=== PATIENT | male | born 1990 | race Two or more races ===

== ENCOUNTER 2021-03-13 05:04 | Emergency (ER) | payer SELFPAY ==
[~2021-03-13] VITALS: Ht 172.7 cm; Wt 65.9 kg
--- NOTE | 2021-03-13 05:21 | PHYS DOC ---
Past Medical History Past Medical History: No Pertinent History (EMIL SUAREZ DO) Past Surgical History: No Surgical History (EMIL SUAREZ DO) Alcohol Use: None (EMIL SUAREZ DO) General Adult EDM: Chief Complaint: ABDOMINAL PAIN HPI: HPI: Patient is a 30 year old male who present to ER due to right side fl ank pain that radiates to right lower abdominal area started at 2 AM this morning. Patient says he vomited one time with trace of blood. Patient also complained of pain with urination. Patient said he is not take any medication currently, he does not drink alcohol, does not have any history of kidney stone. Patient denies any blood in his urine. Patient is a Japanese-speaking, history was obtained using [employer]. (EMIL SUAREZ DO) HPI: Patient is a 30-year-old male who arrives at the emergency department complaining of abdominal pain. Patient reports during the past 3 days he is experienced intermittent abdominal pain in the right side of his abdomen with radiation downward. Patient also states he has had multiple episodes of vomiting and most recently experienced some very scant bleeding associated with his vomiting. Patient describes difficulty swallowing as well during this time. Despite this, he denies any history of fever or diarrhea. Additionally he denies any chest pain or shortness of air he states his throat is not sore. He further denies any known alcohol use or sick contacts. He is awake, alert and nontoxic-appearing. (OMID HOFFMAN DO) Review of Systems: Review of Systems: Constitutional: Denies fever or chills. [] Eyes: Denies change in visual acuity. [] HENT: Denies nasal congestion or sore throat. [] Respiratory: Denies cough or shortness of breath. [] Cardiovascular: Denies chest pain or edema. [] GI: Positive for right abdominal pain with nausea vomiting, no diarrhea. : Positive for dysuria. [] Musculoskeletal: Denies back pain or joint pain. [] Integument: Denies rash. [] Neurologic: Denies headache, focal weakness or sensory changes. [] Endocrine: Denies polyuria or polydipsia. [] Lymphatic: Denies swollen glands. [] Psychiatric: Denies depression or anxiety. [] (EMIL SUAREZ DO) Review of Systems: ENT: The patient reports to difficulty swallowing GI: The patient reports abdominal pain with vomiting All other systems have been reviewed and are within normal limits. (OMID HOFFMAN DO) Heart Score: C/O Chest Pain: N/A Risk Factors: Risk Factors: DM, Current or recent (<one month) smoker, HTN, HLP, family history of CAD, obesity. Risk Scores: Score 0 - 3: 2.5% MACE over next 6 weeks - Discharge Home Score 4 - 6: 20.3% MACE over next 6 weeks - Admit for Clinical Observation Score 7 - 10: 72.7% MACE over next 6 weeks - Early Invasive Strategies (EMIL SUAREZ DO) C/O Chest Pain: No (OMID HOFFMAN DO) Family History: Family History: Noncontributory (OMID HOFFMAN DO) Physical Exam: PE: Constitutional: Well developed, well nourished, no acute distress, non-toxic appearance. [] HENT: Normocephalic, atraumatic, bilateral external ears normal, oropharynx moist, no oral exudates, nose normal. [] Eyes: PERRLA, EOMI, conjunctiva normal, no discharge. [] Neck: Normal range of motion, no tenderness, supple, no stridor. [] Cardiovascular:Heart rate regular rhythm, no murmur [] Lungs & Thorax: Bilateral breath sounds clear to auscultation [] Abdomen: Bowel sounds normal, soft, There is tenderness to palpation in RUQ, RIGHT FLANK AND RLQ, no masses, no pulsatile masses. [] Skin: Warm, dry, no erythema, no rash. [] Back: No tenderness, Positive for right CVA tenderness. [] Extremities: No tenderness, no cyanosis, no clubbing, ROM intact, no edema. [] Neurologic: Alert and oriented X 3, normal motor function, normal sensory function, no focal deficits noted. [] Psychologic: Affect normal, judgement normal, mood normal. [] (EMIL SUAREZ DO) PE: General: Uncomfortable appearing otherwise well-developed. Head: Normocephalic, atraumatic ENT: Normal mucous membranes, no sinus tenderness pharynx is nonerythematous without exudates or swelling Neck: Supple, nontender Cardiovascular: Regular rate, rhythm without murmur or rub. Lungs: Clear to auscultation bilaterally without evidence of wheezes rhonchi or rales Abdomen: Tenderness to palpation of the right mid abdomen as well as right lower quadrant. There is no rebound, guarding or rigidity present. The abdomen is soft and bowel sounds are heard throughout. Skin: No rash : Deferred Neurological: Cranial nerves II through XII are intact. Patient moves all extremities without difficulty. There are no sensory or motor deficits. (OMID HOFFMAN DO) Current Patient Data: Labs: Laboratory Tests Test 03/13/21 05:27 White Blood Count 5.1 x10^3/uL Red Blood Count 5.61 x10^6/uL Hemoglobin 15.8 g/dL Hematocrit 45.6 % Mean Corpuscular Volume 81 fL Mean Corpuscular Hemoglobin 28 pg Mean Corpuscular Hemoglobin Concent 35 g/dL Red Cell Distribution Width 12.7 % Platelet Count 258 x10^3/uL Neutrophils (%) (Auto) 61 % Lymphocytes (%) (Auto) 28 % Monocytes (%) (Auto) 8 % Eosinophils (%) (Auto) 2 % Basophils (%) (Auto) 1 % Neutrophils # (Auto) 3.1 x10^3/uL Lymphocytes # (Auto) 1.4 x10^3/uL Monocytes # (Auto) 0.4 x10^3/uL Eosinophils # (Auto) 0.1 x10^3/uL Basophils # (Auto) 0.0 x10^3/uL Sodium Level 136 mmol/L Potassium Level 4.0 mmol/L Chloride Level 101 mmol/L Carbon Dioxide Level 27 mmol/L Anion Gap 8 Blood Urea Nitrogen 10 mg/dL Creatinine 0.8 mg/dL Estimated GFR (Cockcroft-Gault) 112.0 BUN/Creatinine Ratio 13 Glucose Level 105 mg/dL Calcium Level 9.3 mg/dL Total Bilirubin 0.3 mg/dL Aspartate Amino Transf (AST/SGOT) 50 U/L Alanine Aminotransferase (ALT/SGPT) 61 U/L Alkaline Phosphatase 78 U/L Total Protein 8.5 g/dL Albumin 4.4 g/dL Albumin/Globulin Ratio 1.1 Lipase 97 U/L Current Medications Medications (Trade) Dose Ordered Sig/Kalpana Route PRN Reason Start Time Stop Time Status Last Admin Dose Admin Sodium Chloride 1,000 ml @ 1,000 mls/hr 1X ONCE IV 03/13/21 05:30 03/13/21 06:29 03/13/21 05:35 Ondansetron HCl (Zofran) 4 mg 1X ONCE IVP 03/13/21 05:30 03/13/21 05:31 DC 03/13/21 05:36 Morphine Sulfate (Morphine Sulfate) 4 mg 1X ONCE IVP 03/13/21 05:30 03/13/21 05:31 DC 03/13/21 05:36 Famotidine (Pepcid Vial) 20 mg 1X ONCE IVP 03/13/21 05:30 03/13/21 05:31 DC 03/13/21 05:36 Iohexol (Omnipaque 300 Mg/ml) 75 ml 1X ONCE IV 03/13/21 06:00 03/13/21 06:01 DC 03/13/21 06:01 Info (CONTRAST GIVEN -- Rx MONITORING) 1 each PRN DAILY PRN MC SEE COMMENTS 03/13/21 06:00 03/15/21 05:59 (EMIL SUAREZ DO) EKG: EKG: [] (EMIL SUAREZ DO) Radiology/Procedures: Radiology/Procedures: [] (EMIL SUAREZ DO) Impression: [facility] [address] [place] [address] IMAGING REPORT Signed PATIENT: YARELIS SRIVASTAVA DACCOUNT: [id number] : 1990 LOCATION: ER AGE: 30 SEX: M EXAM STATUS: PRE ER ORD. PHYSICIAN: EMIL SUAREZ DO REASON: right side abdominal pain PROCEDURE: CT ABD PELV W/ IV CONTRST ONLY PQRS Compliance Statement: One or more of the following individualized dose reduction techniques were utilized for this examination: 1. Automated exposure control 2. Adjustment of the mA and/or kV according to patient size 3. Use of iterative reconstruction technique CT abdomen/pelvis with contrast 03/13/2021 5:50 AM INDICATION: Right-sided abdominal pain COMPARISON: None available TECHNIQUE: Multiple axial CT images of the abdomen and pelvis were obtained after the intravenous administration of nonionic contrast. Coronal and sagittal reformats are provided. FINDINGS: There is subsegmental atelectasis or scarring within the posterior basal segment right lower lobe and medial segment right middle lobe. Heart size is within normal limits. Liver, spleen, left adrenal gland and pancreas are normal in appearance. Gallbladder is present without adjacent inflammation. Calcification involving the right renal gland may represent sequela of prior infection or hemorrhage. The abdominal aorta is normal in course and caliber. There are no pathologically enlarged lymph nodes in the abdomen and pelvis. There is no abdominal free fluid. There is no free intraperitoneal air. Small and large bowel are normal in caliber. There is no evidence for bowel obstruction. There are no pericolonic inflammatory changes. A normal, nondilated appendix is visualized without adjacent inflammatory changes. Moderate stool identified throughout the colon. The kidneys enhance symmetrically. There is no suspicious renal mass. There is no hydronephrosis. There are no suspected calculi within the kidneys, ureters or urinary bladder. Urinary bladder is within normal limits given degree of distention. Prostate and seminal vesicles are normal in appearance. No suspicious osseous abnormality is identified. IMPRESSION: No acute abnormality is identified within the abdomen and pelvis. Specifically, no bowel obstruction or inflammation. Appendix is normal in appearance. Calcification involving the right adrenal gland may reflect sequela of prior infection or hemorrhage. Electronically signed by: Meron Blackwood MD (03/13/2021 6:21 AM) [facility] DICTATED and SIGNED BY: MERON BLACKWOOD MD DATE: 03/13/21 [id number] (OMID HOFFMAN DO) Course & Med Decision Making: Course & Med Decision Making Pertinent Labs and Imaging studies reviewed. (See chart for details) Patient is a 30-year-old male who present to ER due to right abdominal pain, CT scan of abdomen pelvis pending at this time , patient has been endorsed to [facility] physician at shift change Dr. Omid Hoffman (EMIL SUAREZ DO) Evie Disclaimer: Evie Disclaimer: This electronic medical record was generated, in whole or in part, using a voice recognition dictation system. (EMIL SUAREZ DO) Departure Departure Impression: Primary Impression: Abdominal pain Additional Impressions: Nausea & vomiting Hematemesis Disposition: HOME / SELF CARE / HOMELESS Condition: STABLE Referrals: LÓPEZ PILLAI MD Patient Instructions: Dysphagia, Hematemesis, Nausea and Vomiting, Viral Synd gabbie Scripts Prednisone (PREDNISONE) 50 Mg Tablet 1 TAB PO DAILY for 5 Days, #5 TAB Prov: OMID HOFFMAN DO 03/13/21 Dicyclomine Hcl (DICYCLOMINE HCL) 10 Mg Capsule 10 MG PO QID for 3 Days, #12 CAP Prov: OMID HOFFMAN DO 03/13/21 Ondansetron Hcl (ZOFRAN) 4 Mg Tablet 1 TAB PO Q6HRS, #20 TAB Prov: OMID HOFFMAN DO 03/13/21 EMIL SUAREZ DO Mar 13, 2021 05:21 OMID HOFFMAN DO Mar 13, 2021 06:33
[2021-03-13] MEDS ORDERED: FAMOTIDINE 20 MG/2 ML VIAL IVP ONE (05:30)
[2021-03-13] MEDS ORDERED: ONDANSETRON PF 4 MG/2 ML VIAL. IVP ONE (05:30)
[2021-03-13] MEDS ORDERED: IV NORMAL SALINE 1000ML BAG 1,000 ML IV ONE (05:30)
[2021-03-13] MEDS ORDERED: MORPHINE SULFATE 4 MG/ML INJ. IVP ONE (05:30)
[2021-03-13 05:35] LABS: BASO % 1 % (0-3); EOS # 0.1 x10^3/uL (0.0-0.7); EOS % 2 % (0-3); HEMATOCRIT 45.6 % (39.0-53.0); HEMOGLOBIN 15.8 g/dL (13.0-17.5); LYMPH # 1.4 x10^3/uL (1.0-4.8); LYMPH % 28 % (24-48); MEAN CORPUSCULAR HEMOGLOBIN 28 pg (25-35); MEAN CORPUSCULAR HGB CONC 35 g/dL (31-37); MEAN CORPUSCULAR VOLUME 81 fL (79-100); MONO # 0.4 x10^3/uL (0.0-1.1); MONO % 8 % (0-9); NEUT # 3.1 x10^3/uL (1.8-7.7); NEUT % 61 % (31-73); PLATELET COUNT 258 x10^3/uL (140-400); RED BLOOD COUNT 5.61 x10^6/uL (4.30-5.70); RED CELL DISTRIBUTION WIDTH 12.7 % (11.5-14.5); WHITE BLOOD COUNT 5.1 x10^3/uL (4.0-11.0)
[2021-03-13 05:43] LABS: CALCIUM 9.3 mg/dL (8.5-10.1); CREATININE 0.8 mg/dL (0.7-1.3)
[2021-03-13 05:49] LABS: ALBUMIN 4.4 g/dL (3.4-5.0); ALBUMIN/GLOBULIN RATIO 1.1 (1.0-1.7); TOTAL BILIRUBIN 0.3 mg/dL (0.2-1.0); TOTAL PROTEIN 8.5 g/dL (6.4-8.2)
[2021-03-13] MEDS ORDERED: IOHEXOL 300 MG/ML 100ML VIAL. IV ONE (06:00)
[2021-03-13] MEDS ORDERED: CONTRAST GIVEN. MC PRN (06:00)
--- NOTE | 2021-03-13 06:24 | RAD ---
PQRS Compliance Statement: One or more of the following individualized dose reduction techniques were utilized for this examinat ion: 1. Automated exposure control 2. Adjustment of the mA and/or kV according to patient size 3. Use of iterative reconstruction technique CT abdomen/pelvis with contrast 03/13/2021 5:50 AM INDICATION: Right-sided abdominal pain COMPARISON: None available TECHNIQUE: Multiple axial CT images of the abdomen and pelvis were obtained after the intravenous adm inistration of nonionic contrast. Coronal and sagittal reformats are provided. FINDINGS: There is subsegmental atelectasis or scarring within the posterior basal segment right lower lobe and medial segment right middle lobe. Heart size is within normal limits. Liver, spleen, left adrenal gl and and pancreas are normal in appearance. Gallbladder is present without adjacent inflammation. Calc ification involving the right renal gland may represent sequela of prior infection or hemorrhage. The abdominal aorta is normal in course and caliber. There are no pathologically enlarged lymph nodes in the abdomen and pelvis. There is no abdominal free fluid. There is no free intraperitoneal air. Small and large bowel are normal in caliber. There is no evidence for bowel obstruction. There are no pericolonic inflammatory changes. A normal, nondilated appendix is visualized without adjacent infla mmatory changes. Moderate stool identified throughout the colon. The kidneys enhance symmetrically. There is no suspicious renal mass. There is no hydronephrosis. The re are no suspected calculi within the kidneys, ureters or urinary bladder. Urinary bladder is within normal limits given degree of distention. Prostate and seminal vesicles are normal in appearance. No suspicious osseous abnormality is identified. IMPRESSION: No acute abnormality is identified within the abdomen and pelvis. Specifically, no bowel obstruction or inflammation. Appendix is normal in appearance. Calcification involving the right adrenal gland may reflect sequela of prior infection or hemorrhage. Electronically signed by: Leny Ramsey MD (03/13/2021 6:21 AM) [facility]
[2021-03-13 06:28] LABS: BILIRUBIN,URINE NEGATIVE (NEG); CLARITY,URINE CLEAR; COLOR,URINE YELLOW; NITRITE,URINE NEGATIVE (NEG); PH,URINE 7.5 (<5.0-8.0); PROTEIN,URINE NEGATIVE (NEG-TRACE); UROBILINOGEN,URINE 0.2 mg/dL (0.2 mg/dL)
[2021-03-13 06:41] LABS: BACTERIA,URINE 0 /HPF (0-FEW); RBC,URINE 0 /HPF (0-2); WBC,URINE OCC /HPF (0-4)
[2021-03-13] MEDS ORDERED: ONDA4TAB7 PO (06:51)
[2021-03-13] MEDS ORDERED: PRED50TA PO (06:51)
[2021-03-13] MEDS ORDERED: DICY10CA3 PO (06:51)
[2021-03-13 07:03] VITALS: BP 111/64
== END 2021-03-13 07:09 | disposition home or self-care (01) ==
LOC: ER 05:04
DX: R10.31 Right lower quadrant pain (principal); K92.0 Hematemesis; R11.2 Nausea with vomiting, unspecified; R30.0 Dysuria
CPT/HCPCS: 36415; 74177; 80053; 81001; 83690; 85025; 96361; 96374; 96375; 99285; J2270; J2405; J3490; J7030; Q9967